=== PATIENT | female | born 1960 | race Caucasian/White ===

== ENCOUNTER 2022-07-07 07:50 | Day surgery (SDC) | payer BC ==
[2022-07-06 09:05] VITALS: BMI 20.3
[2022-07-07] MEDS ORDERED: Lidocaine 2% MPF 10 ML AMP (For Epidural Use) ONE (08:29)
[2022-07-07] MEDS ORDERED: PROPOFOL 40 ML ONE (08:29)
[2022-07-07] MEDS ORDERED: PROPOFOL 20 ML ONE ×2 (10:30→10:49)
== END 2022-07-07 11:59 | disposition home or self-care (01) ==
LOC: CSHSDC 07:50
PROVIDERS: ATTEND Internal Medicine Gastroenterology
PROC: 0DBL8ZZ Excision of Transverse Colon, Via Natural or Artificial Opening Endoscopic (ICD-10-PCS; principal; 2022-07-07)
DX: Z12.11 Encounter for screening for malignant neoplasm of colon (principal); K63.5 Polyp of colon; K64.8 Other hemorrhoids; I10 Essential (primary) hypertension; Z91.040 Latex allergy status; Z79.899 Other long term (current) drug therapy; Z80.0 Family history of malignant neoplasm of digestive organs; Z90.710 Acquired absence of both cervix and uterus; Z98.49 Cataract extraction status, unspecified eye
CPT/HCPCS: 88305; J2704